=== PATIENT | male | born 2000 | race Caucasian/White ===

== ENCOUNTER → 2023-04-29 13:10 | Outpatient (BNVA) | payer SELFPAY | PROVIDERS: Visit Provider Registered Nurse | DX: Z02.1 Encounter for pre-employment examination (principal) | CPT/HCPCS: 80307 ==

== ENCOUNTER 2025-06-15 13:40 | Emergency (ER) | payer OTHER, SELFPAY ==
[2025-06-15] VITALS (7 sets, daily range): BP systolic 123–176; BP diastolic 87–126; PULSE 98–138; RESP 13–20; TEMP 36.8; O2SAT 96–100; BMI 20.5
--- NOTE | 2025-06-15 14:14 | XR_ITS ---
WS: [id number] Exam: XR chest 1V portable [id number] Date/Time of Exam: 06/15/2025 2:14 PM Reason For Exam: dyspnea/cough No priors. Lungs are fully expanded and clear. Normal cardiomediastinal silhouette. Bony structures are intact. XR/XR chest 1V portable [id number] IMPRESSION: 1. No acute cardiopulmonary finding.
--- NOTE | 2025-06-15 14:24 | ED_ITS ---
HPI - Chest Pain 2 General: Chief Complaint: Chest Pain Stated Complaint: chest pain Time Seen by Provider: 06/15/25 14:14 History of Present Illness: 25-year-old male presents to the emergen cy room with complaints of chest pain and rapid heart rate. Blood pressure mildly elevated. He is been monitored in the past for rapid heart rates and elevated blood pressure has not been started on any medications. No shortness of breath no diaphoresis. He has not noticed anything that exacerbates or relieves it. Associated symptoms: Reports palpitations; Deny abdominal pain, dyspnea or fever(s) Related Data Home Medications ?Medication ?Instructions ?Recorded ?Confirmed aspirin 81 mg tablet,delayed 81 mg PO DAILY PRN Chest Pain 06/15/25 06/15/25 release tramadol 50 mg tablet 50 mg PO BID PRN Pain 06/15/25 Previous Rx's ?Medication ?Instructions ?Recorded metoprolol succinate 25 mg 12.5 mg (1/2 x 25 mg) PO DA DARRON #15 06/15/25 tablet,extended release 24 hr tabs (Toprol XL) Allergies Allergy/AdvReac Type Severity Reaction Status Date / Time No Known Allergies Allergy Unverified 04/29/23 13:08 Review of Systems 2 Const: Denies: fever(s) or chills Card: Reports: palpitations and dyspnea on exertion; Denies: chest pain Resp: Denies: dyspnea GI: Denies: abdominal pain : Denies: dysuria, urinary frequency or urinary urgency Musc: Denies: neck pain or back pain Skin/Breast: Denies: rash Physical Exam 2 Const: GENERAL APPEARANCE: cooperative ORIENTATION/CONSCIOUSNESS: Yes awake, Yes oriented to person, Yes oriented to place and Yes oriented to time HENMT: COMMON NORMALS: normocephalic, atraumatic and hearing grossly normal bilaterally HEAD & SCALP: normocephalic and atraumatic Resp: COMMON NORMALS: normal respiratory effort, No retractions, No use of accessory muscles and clear to auscultation bilaterally AUSCULTATION: clear to auscultation bilaterally Cardio: COMMON NORMALS: regular rhythm and No murmurs present (Cardio) R ATE: tachycardic RHYTHM: regular rhythm GI: COMMON NORMALS: Soft to palpation and No hepatosplenomegaly present A USCULTATION: Yes normoactive bowel sounds PALPATION: Yes Soft to palpation, No Tenderness to palpation present (GI), No Guarding due to palpation present (GI) and Yes No hepatosplenomegaly present Extremity: COMMON NORMALS: normal to inspection, capillary refill normal, no clubbing, cyanosis or edema, no calf tenderness and no pedal edema Neuro: SENSORIUM/ORIENTATION: Yes oriented to person, Yes oriented to place and Yes oriented to time Skin: COMMON NORMALS: no rashes or lesions noted GENERAL SKIN EXAM: no rashes or lesions noted Course 2 Vital Signs: Vital signs: Vital Signs Temperature 98.3 F 06/15/25 13:44 Pulse Rate 98 06/15/25 18:25 Respiratory Rate 20 H 06/15/25 18:25 Blood Pressure 145/87 06/15/25 18:25 Pulse Oximetry 99 06/15/25 18:25 Oxygen Delivery Me thod Room Air 06/15/25 13:44 MDM - Chest Pain Medical Decision Making Cardiac enzymes and EKG unremarkable no elevation of troponins will start him on Toprol-XL 12 and half milligrams once daily. At the time of discharge. Decreased to 98. Follow-up with primary care within the next week Lab Data 06/15/25 14:38 06/15/25 14:38 Radiology Impressions Chest X-Ray 06/15/25 14:14 IMPRESSION: 1. No acute cardiopulmonary finding. Laboratory Results WBC 10.10 10^3/uL (3.29-11.43) 06/15/25 14:38 RBC 4.49 10^6/uL (3.85-5.65) 06/15/25 14:38 Hgb 14.90 g/dL (11.27-16.99) 06/15/25 14:38 Hct 39.3 % (37-53) 06/15/25 14:38 MCV 87.5 fl (82-101) 06/15/25 14:38 MCH 33.2 pg (27-33) H 06/15/25 14:38 MCHC 37.9 g/dL (30-55) 06/15/25 14:38 RDW 11.6 % (12.1-15.1) L 06/15/25 14:38 Plt Count 180 10^3/cmm (157-399) 06/15/25 14:38 MPV 8.7 fL (7.4-10.4) 06/15/25 14:38 Lymph % (Auto) Not Reportable 06/15/25 14:38 [place] % (Auto) Not Reportable 06/15/25 14:38 Lymph # (Auto) Not Reportable 06/15/25 14:38 [place] # (Auto) Not Reportable 06/15/25 14:38 Total Counted 100 (0-100) 06/15/25 14:38 Atypical Lymphs % 65.0 % (0-5) H 06/15/25 14:38 Absolute Neutrophils 2.3 10^3/cmm (1.4-6.5) 06/15/25 14:38 Segmented Neutrophils 21 % 06/15/25 14:38 Band Neutrophils 2.0 % 06/15/25 14:38 Absolute Lymphocytes 7.7 10^3/cmm (1.2-3.4) H 06/15/25 14:38 Lymphocytes (Manual) 11 % 06/15/25 14:38 Monocytes (Manual) 1.0 % 06/15/25 14:38 Absolute Monocytes 0.1 10^3/cmm (0.1-0.6) 06/15/25 14:38 Eosinophils (Manual) 0 % 06/15/25 14:38 Absolute Eosinophils 0.0 10^3/cmm (0.0-0.7) 06/15/25 14:38 Basophils (Manual) 0.0 % 06/15/25 14:38 Absolute Basophils 0.0 10^3/cmm (0.0-0.2) 06/15/25 14:38 Metamyelocytes 0.0 % 06/15/25 14:38 Myelocytes 0.0 % 06/15/25 14:38 Promyelocytes 0.0 % 06/15/25 14:38 Nucleated RBCs 0.0 /100WBC (0-1) 06/15/25 14:38 Blast Cells 0 % (0-0) 06/15/25 14:38 Platelet Estimate Normal (Normal) 06/15/25 14:38 D-Dimer 0.31 ug/mLFEU (0-0.59) 06/15/25 14:38 Sodium 140 mmol/L (136-145) 06/15/25 14:38 Potassium 3.4 mmol/L (3.5-5.1) L 06/15/25 14:38 Chloride 102 mmol/L (98-107) 06/15/25 14:38 Carbon Dioxide 19 mmol/L (22-29) L 06/15/25 14:38 Anion Gap 22.4 (5-19) H 06/15/25 14:38 BUN 10 mg/dL (6-20) 06/15/25 14:38 Creatinine 0.7 mg/dL (0.7-1.2) 06/15/25 14:38 GFR Calculation 136.3 mL/min (90-130) H 06/15/25 14:38 Glucose 92 mg/dL (65-115) 06/15/25 14:38 Calculated Osmolality 289 mOsm/kg (285-295) 06/15/25 14:38 Calcium 9.1 mg/dL (8.5-10.5) 06/15/25 14:38 Total Bilirubin 2.4 mg/dL (0.15-1.2) H 06/15/25 14:38 AST 28 U/L (0-40) 06/15/25 14:38 ALT 25 U/L (0-41) 06/15/25 14:38 Alkaline Phosphatase 89 U/L (40-130) 06/15/25 14:38 Troponin T Baseline < 6 ng/L (0-15) 06/15/25 14:38 Troponin T 120 Minute < 6.0 ng/L (0-15) 06/15/25 16:48 Delta Troponin T 0 ABS# (0-10) 06/15/25 16:48 Total Protein 7.6 g/dL (6.6-8.7) 06/15/25 14:38 Albumin 4.7 g/dL (3.5-5.2) 06/15/25 14:38 Globulin 2.9 g/dL (1.3-4.6) 06/15/25 14:38 TSH 0.97 uIU/mL (0.27-4.20) 06/15/25 14:38 All radiology interpretation(s) finalized by discharge EKG Data EKG 1: Interpretation: EKG 06/15/2025 1344 sinus tachycardia rate of 129 SD interval 181 QTc 593. Patient has incomplete right bundle branch block. No acute ST changes noted Discharge Plan Discharge Patient Disposition: Home Clinical Impression: Tachycardia, HTN (hypertension) Condition: Stable Prescriptions: New metoprolol succinate [Toprol XL] 25 mg tablet extended release 24 hr 12.5 mg PO DAILY Qty: 15 0RF No Action aspirin [Aspir-81] 81 mg Tablet,Delayed Release (Dr/Ec) 81 mg PO DAILY PRN (Reason: Chest Pain) tramadol 50 mg Tablet 50 mg PO BID PRN (Reason: Pain) Discharge Orders: Discharge ED (Routine); Ordered 06/15/25 Ordered By: Fritz De Los Santos Referrals: Godfrey Landry MD [Primary Care Provider, Family Practice] Discharge Diet: Usual diet Discharge Activity: Resume usual activity Patient Instructions: Opioid Safety, Pain Management, Patient Portal & Ej Instructions Activity Restrictions/Additional Instructions: [facility] It is very important that you follow up as instructed or that you return to the Emergency Department should you have concerns or if your condition changes or worsens in any way. Emergency department visits are focused on emergent conditions, in some cases you may require further evaluation on an outpatient basis. You were seen in the emergency room with a rapid heart rate and elevated blood pressure your heart enzymes were normal EKG initially did show tachycardia but at rest her heart rate normalized. Recommend you start on metoprolol XL half a tablet once a day and follow-up with your primary care doctor. Will additionally have you set up for a 72-hour Holter monitor. manager [employer] will make arrangements for this. (Please note that included in your discharge packet is information concerning opioid safety and pain management. This information is given to all patients were discharged from the ER regardless of their discharge diagnosis or the medicines they usually take or are prescribed.) Print Language: Hebrew Coding Level of Care Code ED Circular [employer] Cooper for Astrid Nina
--- NOTE | 2025-06-15 14:25 | ECG_ITS ---
[facility]: 2025-06-15 Pat Name: Calvin Kaminski Department: Room: Gender: Male Eyeglass Maker: : 2000 Requested By: Fritz Sarabia Order Number: [id number] Allan MD: Simon Wagner M.D. Measurements Intervals [place] Rate: 129 P: 76 WI: 181 QRS: -83 QRSD: 106 T: 76 QT: 404 QTc: 593 Interpretive Statements SINUS TACHYCARDIA INDETERMINATE AXIS INCOMPLETE RIGHT BUNDLE BRANCH BLOCK [90+ ms QRS DURATION, TERMINAL R IN V1/V2, 40+ ms S IN I/aVL/V4/V5/V6] No previous ECG available for comparison Electronically Signed On 06-16-2025 22:42:06 CDT by Simon Wagner M.D. [email or web address]
[2025-06-15 14:43] LABS: Hematocrit 39.3 % (37-53); Hemoglobin 14.90 g/dL (11.27-16.99); Mean Corpuscular HGB Conc 37.9 g/dL (30-55); Mean Corpuscular Hemoglobin 33.2 pg (27-33); Mean Corpuscular Volume 87.5 fl (82-101); Platelet Count 180 10^3/cmm (157-399); Red Blood Count 4.49 10^6/uL (3.85-5.65); White Blood Count 10.10 10^3/uL (3.29-11.43)
[2025-06-15 15:05] LABS: Troponin(5th) Baseline < 6 ng/L (0-15)
[2025-06-15 15:06] LABS: Slide Review Slide Review Perform
[2025-06-15 15:08] LABS: Absolute Segmented Neutrophil 2.1 10/cmm (1.6-7.1); Atypical Lymphs 65.0 % (0-5); Band Neutrophils Absolute 0.2 10^3/cmm (0.0-1.2); Total Cells Counted 100 (0-100)
[2025-06-15 15:18] LABS: Alanine Aminotransferase 25 U/L (0-41); Albumin Level 4.7 g/dL (3.5-5.2); Alkaline Phosphatase 89 U/L (40-130); Anion Gap 22.4 (5-19); Aspartate Amino Transferase 28 U/L (0-40); Blood Urea Nitrogen 10 mg/dL (6-20); Calcium 9.1 mg/dL (8.5-10.5); Carbon Dioxide 19 mmol/L (22-29); Chloride 102 mmol/L (98-107); Creatinine Clr Calc Pharmacy 177.2202; Globulin 2.9 g/dL (1.3-4.6); Glucose 92 mg/dL (65-115); Osmolality Calculated 289 mOsm/kg (285-295); Potassium 3.4 mmol/L (3.5-5.1); Sodium 140 mmol/L (136-145); Thyroid Stimulating Hormone 0.97 uIU/mL (0.27-4.20); Total Protein 7.6 g/dL (6.6-8.7)
[2025-06-15 17:32] LABS: Troponin 5 2HR < 6.0 ng/L (0-15); Troponin 5 2HR Delta 0 ABS# (0-10)
--- NOTE | 2025-06-19 07:16 | DCPLANNER ---
messaged heart care for er f/u
== END 2025-06-15 18:26 | disposition home or self-care (01) ==
PROVIDERS: Emergency Provider Family Medicine; PCP Family Medicine Geriatric Medicine
DX: R00.0 Tachycardia, unspecified (principal); I10 Essential (primary) hypertension; Z79.82 Long term (current) use of aspirin
CPT/HCPCS: 36415; 71045; 80053; 84443; 84484; 85007; 85025; 85378; 93005; 99285

== ENCOUNTER → 2025-07-14 11:44 | Outpatient (BNVA) | payer OTHER, SELFPAY | PROVIDERS: PCP Family Medicine Geriatric Medicine; Visit Provider Internal Medicine Cardiovascular Disease | DX: Z09 Encounter for follow-up examination after completed treatment for conditions other than malignant neoplasm (principal); R00.0 Tachycardia, unspecified; R55 Syncope and collapse; I10 Essential (primary) hypertension | CPT/HCPCS: 99204 ==

== ENCOUNTER → 2025-08-18 11:32 | Outpatient (BNVA) | payer OTHER, SELFPAY | PROVIDERS: PCP Family Medicine Geriatric Medicine; Visit Provider Internal Medicine Cardiovascular Disease | DX: I42.9 Cardiomyopathy, unspecified (principal); I10 Essential (primary) hypertension; R00.0 Tachycardia, unspecified; Z87.891 Personal history of nicotine dependence | CPT/HCPCS: 83835; 99214 ==

== ENCOUNTER 2025-09-19 20:00 | Outpatient (CLI) | payer OTHER, SELFPAY | END 2025-09-19 20:01 | disposition home or self-care (01) | LOC: SLEEP 20:00 | PROVIDERS: PCP Family Medicine Geriatric Medicine; Referring Provider Family Medicine Geriatric Medicine; Visit Provider Internal Medicine Pulmonary Disease | DX: G47.8 Other sleep disorders (principal) | CPT/HCPCS: 95810 ==